=== PATIENT | female | born 1985 | race African-American/Black ===

== ENCOUNTER 2016-12-29 19:56 | Emergency (ER) | payer OTHER ==
[~2016-12-29] VITALS: Ht 160 cm; Wt 73.0 kg
[~2016-12-29 19:56] MED LIST: FER325 PO; IBUP-1542 PO; METH10TA2 PO
[2016-12-29 19:59] VITALS: Ht 160 cm; Wt 73.0 kg
[2016-12-29] MEDS ORDERED: ACETAMINOPHEN 325 MG TAB PO STA (21:25)
--- NOTE | 2016-12-29 21:39 | ERD ---
ER Documentation Chief Complaint Date/Time DATE: 12/29/16 TIME: 21:35 Chief Complaint vaginal bleeding for 8 days w/ pelvic pain HPI 31-year-old female presenting to the emergency department complaining of severe 10/10 pelvic pain that started today with her onset of her menstrual period. Patient states that normally her menstrual period is regular every month except for the last 2 months it has been different than normal. Patient states that last month her menstrual periods lasted for 10 days with heavy bleeding. She admits to being sexually active with her . She denies any nausea, vomiting, fever, urinary symptoms, discharge ROS All systems reviewed and are negative except as per history of present illness. Medications Home Meds Active Scripts Acetaminophen* (Tylenol*) 325 Mg Tablet, 2 TAB PO Q6 Y for PAIN AND OR ELEVATED TEMP, #20 TAB Prov:VIDHI LIM PA-C 12/29/16 Ibuprofen* (Motrin*) 600 Mg Tab, 600 MG PO Q6, #30 TAB Prov:JOSE EDUARDO GREEN MD 02/05/15 Reported Medications Ferrous Sulfate* (Ferrous Sulfate*) 325 Mg Tabec, 325 MG PO DAILY, TAB 05/31/16 Methadone Hcl* (Methadone*) 10 Mg Tab, 10 MG PO, TAB 05/31/16 Allergies Allergies: Coded Allergies: No Known Allergy (Verified , 05/31/16) PMhx/Soc Medical and Surgical Hx: pt denies Medical Hx History of Surgery: Yes (d&c) Anesthesia Reaction: No Hx Neurological Disorder: No Hx Respiratory Disorders: No Hx Cardiac Disorders: No Hx Psychiatric Problems: No Hx Miscellaneous Medical Probl: No Hx Alcohol Use: No Hx Substance Use: No Hx Tobacco Use: Yes Smoking Status: Current every day smoker Physical Exam Vitals Vital Signs Date Time Temp Pulse Resp B/P Pulse Ox O2 Delivery O2 Flow Rate FiO2 12/29/16 19:59 98.3 95 20 115/79 100 Physical Exam GENERAL: well-developed/well-nourished, in no apparent distress, non-toxic appearing HENT: NC/AT, moist mucous membranes EYES: Conjunctiva normal NECK: Supple, no lymphadenopathy PULM: CTA bilaterally, no rales, rhonchi, or wheezing heard CV: Normal S1S2, RRR, good capillary refill GI: Soft, non-distended, tender to palpation pelvic region Normal bowel sounds, no masses or organomegaly felt on exam No gross peritonitis, no bruits Negative Rovsing, negative Orta, negative McBurney's point, Negative CVAT BACK: No masses EXT: No clubbing, cyanosis, or edema NEURO: Alert and Orientated SKIN: Intact, normal turgor PSYCH: Normal mood and mentation Results 24 hrs Laboratory Tests Test 12/29/16 22:11 Bedside Urine pH (LAB) 5.5 Bedside Urine Protein (LAB) 1+ Bedside Urine Glucose (UA) Negative Bedside Urine Ketones (LAB) Negative Bedside Urine Blood 3+ Bedside Urine Nitrite (LAB) Negative Bedside Urine Leukocyte Esterase (L Trace Current Medications Medications (Trade) Dose Ordered Sig/Monique Route PRN Reason Start Time Stop Time Status Last Admin Dose Admin Acetaminophen (Tylenol Tab) 650 mg ONCE STAT PO 12/29/16 21:25 12/29/16 21:26 DC 12/29/16 21:25 Procedures/MDM This is a 31-year-old female presenting to the emergency department complaining of severe pelvic pain onset of her menstrual period for 1 day, this is likely due to normal menses, dysmenorrhea, ovarian ca vs other non-specific causes of pelvic pain. I have a low suspicion for ovarian torsion, ruptured ovarian cyst , , UTI. A urinalysis was done in the ED and did not show any evidence of urinary tract infection. Pelvic ultrasound showed normal appearance of uterus and right ovary however a non-specific borderline enlarged left ovary, I discussed with patient that she will need to follow-up with an OB/ [facility] DEPARTMENT MANAGER in regards to her diagnostic testing. A prescription for Tylenol was provided. I discussed the patient to return to the ER for any worsening signs or symptoms. Patient understands and agrees with this plan. She stable for discharge her home pelvic ultrasound: 1. Normal appearance of uterus and right ovary. 2. Borderline enlarged left ovary, nonspecific. Blood flow was demonstrated to the left ovary at the time of the examination. Departure Diagnosis: Primary Impression: Pelvic pain Condition: Stable VIDHI LIM PA-C December 29, 2016 21:39
[2016-12-29 22:09] LABS: URINE BLOOD (Dip) POC 3+ (NEGATIVE)
--- NOTE | 2016-12-29 22:39 | RADRPT ---
PROCEDURE: US Non-OB Pelvis. CLINICAL INDICATION: Severe pelvic pain. TECHNIQUE: Multiple sonographic images of the pelvis were obtained utilizing a transabdominal and endovaginal technique. The images were reviewed on a PACS workstation. COMPARISON: 04/30/2016. FINDINGS: The uterus is visualized and measures 8.3 x 3.6 x 5.1 cm. The endometrial echo complex is normal and measures 6 mm. The right ovary measures 3.2 x 1.2 x 2.3 cm. The left ovary measures 4.5 x 3.3 x 3.1 cm (24.1 cc). B lood flow is demonstrated to both ovaries. No adnexal masses are noted. There is no evidence of free fluid. IMPRESSION: 1. Normal appearance of uterus and right ovary. 2. Borderline enlarged left ovary, nonspecific. Blood flow was demonstrated to the left ovary at t he time of the examination. RPTAT: HTAR .Julio Nash MD, MD Date Time Electronically viewed and signed by .Julio Nash MD, on 12/29/2016 22:39 .R/
[2016-12-29] MEDS ORDERED: ACET325T33 PO (22:54)
== END 2016-12-29 23:03 | disposition home or self-care (01) ==
LOC: FTE 19:56
DX: R10.2 Pelvic and perineal pain (principal); F17.210 Nicotine dependence, cigarettes, uncomplicated
CPT/HCPCS: 76830; 76856; 81003

== ENCOUNTER 2017-06-08 09:52 | Emergency (ER) | payer OTHER ==
[~2017-06-08] VITALS: Ht 160 cm; Wt 68.0 kg
[~2017-06-08 09:52] MED LIST changes: +ACET325T33 PO
[2017-06-08 09:57] VITALS: Ht 160 cm; Wt 68.0 kg
[2017-06-08] MEDS ORDERED: DIVA500T7 PO ×2 (10:46→11:30)
[2017-06-08] MEDS ORDERED: IBUPROFEN 800 MG TAB PO ONE (11:00)
[2017-06-08 11:20] LABS: BASOPHILS % 0.2 % (0.0-2.0); EOSINOPHILS # 0.1 10^3/ul (0.0-0.5); EOSINOPHILS % 0.9 % (0.0-7.0); HEMOGLOBIN 10.7 g/dl (12.0-16.0); LYMPHOCYTES # 2.4 10^3/ul (0.8-2.9); LYMPHOCYTES % 28.7 % (15.0-51.0); MEAN CORPUSCULAR HEMOGLOBIN 26.6 pg (29.0-33.0); MEAN CORPUSCULAR HGB CONC 31.5 g/dl (32.0-37.0); MEAN CORPUSCULAR VOLUME 84.6 fl (82.0-101.0); MEAN PLATELET VOLUME 9.2 fl (7.4-10.4); MONOCYTE # 0.9 10^3/ul (0.3-0.9); MONOCYTES % 10.6 % (0.0-11.0); NEUTROPHIL # 4.9 10^3/ul (1.6-7.5); NEUTROPHILS % 59.4 % (39.0-77.0); PLATELET COUNT 206 10^3/UL (140-415); RED BLOOD COUNT 4.02 10^6/ul (4.20-5.40); RED CELL DISTRIBUTION WIDTH 15.9 % (11.5-14.5); WHITE BLOOD COUNT 8.2 10^3/ul (4.8-10.8)
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
== END 2017-06-08 16:03 | disposition home or self-care (01) ==
LOC: EDBD → MERGE 09:52 → E/R 09:52
DX: D64.9 Anemia, unspecified (principal); F99 Mental disorder, not otherwise specified; Z76.0 Encounter for issue of repeat prescription; Z87.891 Personal history of nicotine dependence
CPT/HCPCS: 85025; 99283

== ENCOUNTER 2018-07-28 12:58 | Emergency (ER) | END 2018-07-28 16:27 | disposition home or self-care (01) ==